=== PATIENT | female | born 1960 | race Caucasian/White ===

== ENCOUNTER 2016-10-03 13:10 | Emergency (ER) | payer OTHER ==
[~2016-10-03] VITALS: Ht 165.1 cm; Wt 95.4 kg
[~2016-10-03 13:10] MED LIST: ALEVE220 M2 PO; ASPIR 8181 M1 PO; ASPIR-LOW81 MG PO; CARDIZEM30 MG PO; CIMZIA400 MG/2 M PO; CIPRO500 MG PO; Cardizem PO; DAILY VALUE1 EACH PO; DILTIAZEM 24HR180 MG PO; DOXYCYCLINE HY100 MG PO; ERGOCALCIF50000 UNIT PO; Ecotrin PO; FLAGYL500 MG PO; GABAPENTIN100 MG PO; HYDROCODON-ACE1 EAC7 PO; MULTIVITAMIN1 EAC2 PO; NEXIUM40 MG PO; NITROLINGUAL S4.9 GM MM; NITROSTAT0.4 MG SL; PLAQUENIL200 MG PO; PREDNISONE2.5 MG PO; PROTONIX40 MG PO; PYRIDIUM100 MG PO; REGLAN10 MG PO; REWETTING DROPS20 ML BOTH EYES; SPECTAZOLE15 G1 TP; SYSTANE GEL EYE10 ML BOTH EYES; XARELTO20 MG PO; predniSONE PO
[2016-10-03 14:17] LABS: EOSINOPHIL (%) 1.9 % (0-5); EOSINOPHIL COUNT 0.1 K/uL (0-0.3); HEMATOCRIT 39.6 % (36.0-46.0); IMMATURE GRANULOCYTE (%) 0.8 % (0.0-0.7); IMMATURE GRANULOCYTE COUNT 0.5 K/uL; LYMPHOCYTE COUNT 1.7 K/uL (1.0-2.8); MCH 30.9 PG (29.0-34.0); MCHC 33.8 G/DL (30.0-36.0); MCV 91.5 FL (83-99); MEAN PLAT.VOLUME 9.8 uM^3 (9.5-12.4); MONOCYTE COUNT 0.5 K/uL (0-0.8); NEUTROPHIL (%) 62.6 % (45-76); PLATELET COUNT 262 K/uL (156-360); RBC DIS.WIDTH-SD 42.4 % (39-53); RED BLOOD COUNT 4.33 M/uL (3.80-5.20); WHITE BLOOD COUNT 6.4 K/uL (4.1-10.2)
[2016-10-03 14:30] LABS: CHLORIDE 107 mEq/L (99-109); POTASSIUM 4.3 mEq/L (3.7-5.4); SODIUM 141 mEq/L (136-147)
[2016-10-03 14:32] LABS: GLUCOSE 76 mg/dL (70-99)
[2016-10-03 14:33] LABS: ANION GAP 7 MEQ/L (2-14)
[2016-10-03 14:36] LABS: GFR ESTIMATE (CALCULATED) > 59 mL/min/; UREA NITROGEN (BUN) 9 mg/dL (9-23)
[2016-10-03] MEDS ORDERED: CLINDAMYCIN HC300 MG PO (16:20)
[2016-10-03 16:45] VITALS: BP 138/80
== END 2016-10-03 16:48 | disposition home or self-care (01) ==
LOC: EME 13:10
PROVIDERS: Physician Assistant
DX: K11.20 Sialoadenitis, unspecified (principal); Z88.6 Allergy status to analgesic agent; Z88.2 Allergy status to sulfonamides
CPT/HCPCS: 70488; 80048; 85025; 99281; 99284; J7120